=== PATIENT | female | born 1955 | race Caucasian/White ===

== ENCOUNTER → 2018-08-11 | Outpatient (CLI) | payer MEDICARE, OTHER ==
--- NOTE | 2018-08-11 15:29 | CARD ---
MR#: [id number] Date of Study: 08/11/2018 Ordering Physician: JUDY SANON, Referring Physician: JUDY SANON, Tech: Karen Foster APPROVED REPORT EXAM: Two-dimensional and M-mode echocardiogram with Doppler and color Doppler. Other Information HR: 69bpm INDICATION CAD Surgery/Intervention Bioprosthetic 2D DIMENSIONS RVDd3.1 (2.9-3.5cm)Left Atrium(2D)3.3 (1.6-4.0cm) IVSd1.0 (0.7-1.1cm)Aortic Root(2D)1.5 (2.0-3.7cm) LVDd3.9 (3.9-5.9cm)LVOT Diameter2.0 (1.8-2.4cm) PWd1.0 (0.7-1.1cm)LVDs2.3 (2.5-4.0cm) FS (%) 40.2 %SV46.5 ml LVEF(%)71.5 (>50%) Aortic Valve AoV Peak Dk.230.9cm/sAoV VTI40.6cm AO Peak GR.21.3mmHgLVOT Peak Dk.95.0cm/s LVOT VTI 20.17cmAO Mean GR.12mmHg MARLON (VMAX)1.50ba3FKK (VTI)1.58cm2 Mitral Valve MV E Lazjraiz73.0cm/sMV DECEL HKJE215il MV A Fgfihamm077.3cm/sE/A Ratio0.7 Pulmonary Valve PV Peak Mbhrcozp523.8cm/sPV Peak Grad.7mmHg Tricuspid Valve TR P. Jrfrlgcn973nh/sRAP PBQQAZWT7bnFt TR Peak Gr.07vuUvZVTW97cnId Pulmonary Vein S1 Qgslkkfo14.6cm/sD2 Axixfmeq18.6cm/s LEFT VENTRICLE The left ventricle is normal size. There is borderline concentric left ventricular hypertrophy. The l eft ventricular systolic function is normal and the ejection fraction is within normal range. The Eje ction Fraction is 60-65%. There is normal LV segmental wall motion. Transmitral Doppler flow pattern is Grade I-abnormal relaxation pattern. RIGHT VENTRICLE The right ventricle is normal size. There is normal right ventricular wall thickness. The right ventr icular systolic function is normal. ATRIA The left atrium size is normal. The right atrium size is normal. The interatrial septum is intact wit h no evidence for an atrial septal defect or patent foramen ovale as noted on 2-D or Doppler imaging. AORTIC VALVE The aortic valve is not well visualized. Doppler and Color Flow revealed no significant aortic regurg itation. Calculated aortic valve area is 1.6 cm2 with maximum pressure gradient of 21 mmHg and mean p ressure gradient of 12 mmHg. Transcatheter AVR in place. 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 MITRAL VALVE The mitral valve is thickened but opens well. There is no mitral valve stenosis. Doppler and Color-fl ow revealed trace mitral regurgitation. TRICUSPID VALVE The tricuspid valve is not well visualized. Doppler and Color Flow revealed trace tricuspid regurgita tion. There is no tricuspid valve stenosis. PULMONIC VALVE The pulmonic valve is not well visualized. Doppler and Color Flow revealed trace pulmonic valvular re gurgitation. There is no pulmonic valvular stenosis. GREAT VESSELS The aortic root is normal in size. Normal pulmonary venous flow (Doppler). The IVC is normal in size and collapses >50% with inspiration. PERICARDIAL EFFUSION There is no evidence of significant pericardial effusion. Critical Notification Critical Value: No <Conclusion> The left ventricular systolic function is normal and the ejection fraction is within normal range. Th e Ejection Fraction is 60-65%. There is normal LV segmental wall motion. Transcatheter AVR in place. 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 Calculated aortic valve area is 1.6 cm2 with maximum pressure gradient of 21 mmHg and mean pressure gradient of 12 mmHg. Signed by : Judy Sanon, Electronically Approved : 08/11/2018 15:28:25
== END | disposition home or self-care (01) ==
LOC: ECHO 12:38
PROVIDERS: ATTEND Internal Medicine Cardiovascular Disease
DX: I25.10 Atherosclerotic heart disease of native coronary artery without angina pectoris (principal)
CPT/HCPCS: 93306

== ENCOUNTER → 2019-02-11 | Outpatient (CLI) | payer MEDICARE, OTHER ==
[~2019-02-11] VITALS: Ht 162.6 cm; Wt 63.5 kg
[~2019-02-11] MED LIST: LOSA25TA PO; REGADENOSON 0.4 MG/5 ML DISP.SYRIN. IV ONE
--- NOTE | 2019-02-11 12:56 | RAD ---
MR#: [id number] Date of Study: 02/11/2019 Ordering Physician: JUDY SANON, Referring Physician: JOSHUA BURR Tech: NOVA Woodson ARRT (Miguel A) (N) APPROVED REPORT Test Type: Pharmacological Stress Nurse/Tech: JOHNSON Ma/PASQUALE Woodson Test Indications: cad Cardiac History: See Electronic Medical Record Medications: See Electronic Medical Record Medical History: See Electronic Medical Record Resting ECG: sr, LBBB Resting Heart Rate: 70 bpm Resting Blood Pressure: 172/72mmHg Pretest Chest Pain: None Nurse/Tech Notes SR, LBBB Consent: The procedure was explained to the patient in lay terms. Informed consent was witnessed. Nnamdi eout was entered into [employer]. History and Stress Test performed by NOVA Woodson ARRT (R) (N) Pharm. Details Pharmacologic stress testing was performed using 0.4mg per 5ml of regadenoson given intravenously ove r 7-10 seconds. Stress Symptoms Dyspnea POST EXERCISE Reason for Termination: Infusion complete Target HR: No Max HR: 99 bpm 73% of Maximum Predicted HR: 134 bpm Exercise duration: 6 min:sec, Stage Max Blood Pressure: 164/65mmHg Blood Pressure response to exercise: Normal blood pressure response during stress. Chest Pain: No. Arrhythmia: No. ST Change: No. INTERPRETATION Stress EKG Conclusion: SR, LBBB Imaging Protocol IMAGE PROTOCOL: Rest Tc-99m/stress Tc-99m 1 day Rest: Stress: Viability: Radiopharm.Tc99m QzgtrydpgGj53n Sestamibi Fmuz45bGn 34mCi Img Date 02/11/2019 02/11/2019 Rest Admin Site:IV - Left AntecubitalAdministrator: NOVA Woodson ARRT (R)(N) Stress Admin Site: IV - Left AntecubitalAdministrator: NOVA Woodson ARRT (Miguel A)(N) STRESS DATA End Diast. Vol.57.0mlAv. Heart Rate73.0bpm LVEDV index BSA1.0mlCardiac Output0.1L/min End Syst. Vol.12.0mlCO Index BSA3.2L/min LVESV index BSA0.0mlMyocardial Rpgc187.0g Eject. Rmgvkmbl00.0% Stress Rates Pk. Fill Rate3.97EDV/secLVtime Pk. Fill 199.91msec Pk. Empty Rate4.21ESV/secLVtime Pk. Iarjy889.11msec 1/3 Pk. Fill1.49EDV/sec Stress Scores Regional WT0.00Summed WT7.00 Regional WM0.00Summed WM3.00 The rest and stress images show normal perfusion, normal contraction and thickening. LV Perf. Quant 17 Seg. SSS1.00 17 Seg. SRS3.00 17 Seg. SDS0.00 Stress Defect Extent (% LAD)5.00Rest Defect Extent (% LAD)11.90Rev. Defect Extent (% LAD)0.00 Stress Defect Extent (% LCX) 0.00Rest Defect Extent (% LCX)0.00Rev. Defect Extent (% LCX)0.00 Stress Defect Extent (% RCA)0.00Rest Defect Extent (% RCA)0.00Rev. Defect Extent (% RCA)0.00 Stress Defect Extent (% TESFAYE)3.30Rest Defect Extent (% TESFAYE)7.00Rev. Defect Extent (% TESFAYE)0.00 Other Information Quality:Good Risk Assessment: Low Risk Conclusion 1. Non-diagnostic EKG due to baseline LBBB 2. Normal perfusion at stress/rest. 3. Low risk study 4. EF > 70% Signed by : Judy Sanon, Electronically Approved : 02/11/2019 12:55:49
== END | disposition home or self-care (01) ==
LOC: NM 07:50
PROVIDERS: ATTEND Internal Medicine Cardiovascular Disease
DX: I25.10 Atherosclerotic heart disease of native coronary artery without angina pectoris (principal); I10 Essential (primary) hypertension; Z79.01 Long term (current) use of anticoagulants
CPT/HCPCS: 78452; 93017; 96376; A9500; J2785; 96375

== ENCOUNTER → 2020-05-10 | Outpatient (CLI) | payer OTHER ==
[~2020-05-10] MED LIST changes: -REGADENOSON 0.4 MG/5 ML DISP.SYRIN. IV ONE
[2020-05-10 15:07] LABS: BASO % 0 % (0-3); EOS # 0.1 x10^3/uL (0.0-0.7); EOS % 2 % (0-3); HEMATOCRIT 43.7 % (36.0-47.0); HEMOGLOBIN 14.2 g/dL (12.0-15.5); LYMPH # 0.6 x10^3/uL (1.0-4.8); LYMPH % 10 % (24-48); MEAN CORPUSCULAR HEMOGLOBIN 29 pg (25-35); MEAN CORPUSCULAR HGB CONC 33 g/dL (31-37); MEAN CORPUSCULAR VOLUME 90 fL (79-100); MONO # 0.4 x10^3/uL (0.0-1.1); MONO % 6 % (0-9); NEUT # 5.6 x10^3uL (1.8-7.7); NEUT % 82 % (31-73); PLATELET COUNT 251 x10^3/uL (140-400); RED BLOOD COUNT 4.88 x10^6/uL (3.50-5.40); RED CELL DISTRIBUTION WIDTH 15.9 % (11.5-14.5); WHITE BLOOD COUNT 6.8 x10^3/uL (4.0-11.0)
[2020-05-10 15:16] LABS: ALBUMIN 3.6 g/dL (3.4-5.0); CALCIUM 9.4 mg/dL (8.5-10.1); GFR 55.8; MAGNESIUM 1.5 mg/dL (1.8-2.4); PHOSPHORUS 2.7 mg/dL (2.6-4.7); POTASSIUM 3.8 mmol/L (3.5-5.1); TOTAL BILIRUBIN 0.3 mg/dL (0.2-1.0); TOTAL PROTEIN 7.1 g/dL (6.4-8.2); URIC ACID 3.7 mg/dL (2.6-6.0)
[2020-05-10 16:02] LABS: BACTERIA,URINE MANY /HPF (0-FEW); BILIRUBIN,URINE NEG (NEG); CLARITY,URINE HAZY; COLOR,URINE YELLOW; GLUCOSE,URINE NEG (NEG); NITRITE,URINE POS (NEG); UROBILINOGEN,URINE 0.2 mg/dL (0.2 mg/dL); WBC,URINE 20-40 /HPF (0-4)
[2020-05-11 02:06] LABS: HEMOGLOBIN A1C 6.2 % (4.8-5.6)
[2020-05-11 14:12] LABS: CREATININE,RANDOM URINE 137.1 mg/dL (Not Establ.)
== END | disposition home or self-care (01) ==
LOC: LAB 13:59
PROVIDERS: ATTEND Specialist
DX: E10.22 Type 1 diabetes mellitus with diabetic chronic kidney disease (principal); N18.2 Chronic kidney disease, stage 2 (mild); E10.8 Type 1 diabetes mellitus with unspecified complications; R80.8 Other proteinuria; D89.9 Disorder involving the immune mechanism, unspecified; Z94.0 Kidney transplant status; Z79.899 Other long term (current) drug therapy
CPT/HCPCS: 36415; 80053; 80197; 81001; 82150; 82570; 83036; 83690; 83735; 84100; 84156; 84550; 85025; 87077; 87086; 87186

== ENCOUNTER → 2020-06-06 | Outpatient (CLI) | payer OTHER ==
[2020-06-06 11:57] LABS: BASO % 0 % (0-3); EOS # 0.1 x10^3/uL (0.0-0.7); EOS % 1 % (0-3); HEMATOCRIT 40.9 % (36.0-47.0); HEMOGLOBIN 13.5 g/dL (12.0-15.5); LYMPH # 0.9 x10^3/uL (1.0-4.8); LYMPH % 10 % (24-48); MEAN CORPUSCULAR HEMOGLOBIN 30 pg (25-35); MEAN CORPUSCULAR HGB CONC 33 g/dL (31-37); MEAN CORPUSCULAR VOLUME 89 fL (79-100); MONO # 0.6 x10^3/uL (0.0-1.1); MONO % 7 % (0-9); NEUT # 7.5 x10^3uL (1.8-7.7); NEUT % 82 % (31-73); PLATELET COUNT 445 x10^3/uL (140-400); RED BLOOD COUNT 4.58 x10^6/uL (3.50-5.40); RED CELL DISTRIBUTION WIDTH 15.2 % (11.5-14.5); WHITE BLOOD COUNT 9.2 x10^3/uL (4.0-11.0)
[2020-06-06 12:20] LABS: ALBUMIN 3.1 g/dL (3.4-5.0); ALBUMIN/GLOBULIN RATIO 0.8 (1.0-1.7); CALCIUM 9.4 mg/dL (8.5-10.1); CREATININE 0.9 mg/dL (0.6-1.0); MAGNESIUM 1.6 mg/dL (1.8-2.4); PHOSPHORUS 3.3 mg/dL (2.6-4.7); POTASSIUM 3.8 mmol/L (3.5-5.1); TOTAL BILIRUBIN 0.3 mg/dL (0.2-1.0); TOTAL PROTEIN 6.8 g/dL (6.4-8.2); URIC ACID 3.5 mg/dL (2.6-6.0)
[2020-06-06 13:40] LABS: BACTERIA,URINE MANY /HPF (0-FEW); BILIRUBIN,URINE NEG (NEG); CLARITY,URINE CLOUDY; COLOR,URINE YELLOW; GLUCOSE,URINE NEG (NEG); NITRITE,URINE POS (NEG); SQUAMOUS EPITHELIAL CELL,UR FEW /LPF; WBC,URINE OCC /HPF (0-4)
[2020-06-07 02:07] LABS: HEMOGLOBIN A1C 6.3 % (4.8-5.6)
[2020-06-07 20:32] LABS: CREATININE,RANDOM URINE 66.9 mg/dL (Not Establ.)
== END | disposition home or self-care (01) ==
LOC: LAB 11:16
PROVIDERS: ATTEND Specialist
DX: D89.9 Disorder involving the immune mechanism, unspecified (principal); R80.8 Other proteinuria; Z94.0 Kidney transplant status; Z79.899 Other long term (current) drug therapy; Z94.83 Pancreas transplant status
CPT/HCPCS: 80053; 80197; 81001; 82150; 82570; 83036; 83690; 83735; 84100; 84156; 84550; 85025; 87086

== ENCOUNTER 2021-02-13 23:07 | Emergency (ER) | payer OTHER ==
[~2021-02-13] VITALS: Ht 162.6 cm; Wt 56.8 kg
--- NOTE | 2021-02-13 23:26 | PHYS DOC ---
Past History Past Medical History: CAD, Diabetes, Hypertension, Renal Disease, Other Additional Past Medical Histor: kidney/pancreas transplant Past Surgical History: Cholecystectomy, Hip Replacement, Tubal ligation Additional Past Surgical Histo: 4 cardiac stents,aortic valve replacement,rt thigh/wrist/knee, kidney/panc Smoking: Non-smoker Alcohol Use: None Drug Use: None General Adult EDM: Chief Complaint: SHORTNESS OF BREATH HPI: HPI: 65-year-old female presents via EMS with progressive dyspnea x4-5 days. Patient reports was seen by PCP on Friday and thought to have right lower lobe infiltrate. Patient was started on antibiotic she thinks is "Omnicef ". Patient also reports prednisone was increased to 20 mg. Patient has a history of kidney and pancreas transplant from . Patient denies trauma. Denies fever or chills. Denies known exposure to COVID-19. Patient reports she has received COVID-19 vaccination x2. Patient does report she is currently on Effient. Also reports reports history of aortic valve replacement, diabetes, and hypertension. Patient denies leg swelling or calf tenderness. Denies trauma. Denies chest pain. EMS reports patient's O2 down to 85% on room air upon their arrival. Patient reports she typically is not on supplemental O2. EMS placed patient on supplemental O2 with interval improvement of oxygen saturation. Review of Systems: Review of Systems: Constitutional: Denies fever or chills Eyes: Denies redness or eye pain HENT: Denies nasal congestion or sore throat Respiratory: Denies cough; reports shortness of breath Cardiovascular: Denies chest pain or palpitations GI: Denies abdominal pain, nausea, or vomiting : Denies dysuria or hematuria Musculoskeletal: Denies back pain or joint pain Integument: Denies rash or skin lesions Neurologic: Denies headache, focal weakness or sensory changes Complete systems were reviewed and found to be within normal limits, except as documented in this note. Allergies: Allergies: Allergies Coded Allergies Type Severity Reaction Last Updated Verified No Known Drug Allergies 02/13/21 No Physical Exam: PE: Constitutional: Well developed, well nourished, mild respiratory distress, non- toxic appearance HENT: Normocephalic, atraumatic Eyes: Conjunctiva normal, no discharge, right eye ptosis noted Neck: Normal range of motion, no tenderness, supple Lungs & Thorax: Mild respiratory distress, rales at bases bilaterally, equal chest rise and fall Cardiovascular: Regular rate and rhythm Abdomen: Soft, no tenderness Skin: Warm, dry, no erythema, no rash Extremities: No tenderness, ROM intact, trace edema Neurologic: Alert and oriented X 3, no focal deficits noted Psychologic: Affect normal, judgment normal Current Patient Data: Vital Signs: Vital Signs Date Time Temp Pulse Resp B/P (MAP) Pulse Ox O2 Delivery O2 Flow Rate FiO2 02/13/21 23:13 98.0 73 22 154/53 (86) 95 Nasal Cannula 2.0 EKG: EKG: @2316 NSR at 86bpm, LBBB, QRS 138ms, QT/QTc 394/475ms Radiology/Procedures: Radiology/Procedures: PROCEDURE: CHEST AP ONLY INDICATION: Reason: SOA / Spl. Instructions: / History: COMPARISON: October 2020 FINDINGS: Single view of chest obtained. Cardiac silhouette is enlarged. Aortic valve is seen. Mild interstitial and groundglass opacities bilaterally IMPRESSION: * Mild interstitial and groundglass opacities which could be from mild edema or interstitial infiltrate. Electronically signed by: Jhonatan Grijalva MD (02/13/2021 11:45 PM) DESKTOP- [id number] Heart Score: C/O Chest Pain: No HEART Score for Chest Pain: HEART Score for Chest Pain Response (Comments) Value History Slighlty/Non-Suspicious 0 ECG Nonspecific Repolarizatio 1 Age >45 - < 65 1 Risk Factors >3 Risk Factors or Hx CAD 2 Troponin >3 x Normal Limit 2 Total 6 Risk Factors: Risk Factors: DM, Current or recent (<one month) smoker, HTN, HLP, family history of CAD, obesity. Risk Scores: Score 0 - 3: 2.5% MACE over next 6 weeks - Discharge Home Score 4 - 6: 20.3% MACE over next 6 weeks - Admit for Clinical Observation Score 7 - 10: 72.7% MACE over next 6 weeks - Early Invasive Strategies Course & Med Decision Making: Course & Med Decision Making Pertinent Labs and Imaging studies reviewed. (See chart for details) Patient presents with 4 to 5-day history of progressive dyspnea. History of kidney and pancreas transplant. Patient was seen by PCP on Friday and started on empiric antibiotic which patient thinks is Omnicef. Patient also increased in steroid. Patient denies any chest pain. History of hypoxia on room air down to 85%. Improved with supplemental O2. Rales noted on physical exam. Concern for fluid overload. Nitropaste applied for displacement of increased fluid. EKG with left bundle branch block. No prior EKG for comparison. Labs obtained and posted to chart. Troponin elevated to 0.845 and BNP greater than 10,891. Aspirin provided. Lactic acid within normal limits. WBC slightly elevated. Chest x-ray with signs of vascular congestion versus infiltrate. Rapid COVID-19 test negative. Obtained despite patient receiving Covid vaccinations x2 given history of immune compromise situation. Symptoms appear more consistent for CHF exacerbation. Patient requiring transfer to higher level of acuity for admission for further evaluation and treatment. Patient typically follows at . Utilize transfer center. Dr. Perkins ( [facility]) reports safe to give 40mg IV Lasix. Lasix provided. Dr. Adrian Bah (hospitalist) in agreement with transfer to for admission. Discussed findings and plan with patient and family, who acknowledge understanding and agreement. Tatum Disclaimer: Tatum Disclaimer: This electronic medical record was generated, in whole or in part, using a voice recognition dictation system. Departure Departure: Impression: Primary Impression: Acute exacerbation of CHF (congestive heart failure) Qualified Codes: I50.9 - Heart failure, unspecified Additional Impressions: Hypoxia Elevated troponin History of kidney transplant History of pancreas transplant Disposition: [facility] (- Dr. Adrian Bah (hospitalist) accepting) Condition: STABLE Referrals: AUBRIE WADE MD (PCP) Critical Care Time Critical care time was 30 minutes which includes time at bedside, spent in discussion of patient's care with specialists and/or family members, with interpretation of laboratory and/or radiological studies and is exclusive of procedures. JACKSON COLORADO DO February 13, 2021 23:26
--- NOTE | 2021-02-13 23:47 | RAD ---
INDICATION: Reason: SOA / Spl. Instructions: / History: COMPARISON: October 2020 FINDINGS: Single view of chest obtained. Cardiac silhouette is enlarged. Aortic valve is seen. Mild interstitial and groundglass opacities bilaterally IMPRESSION: * Mild interstitial and groundglass opacities which could be from mild edema or interstitial infiltr ate. Electronically signed by: Jhonatan Grijalva MD (02/13/2021 11:45 PM) [id number]
[2021-02-13] MEDS: NITROGLYCERIN OINT 1 GM PACKET. TP ONE (23:51)
[2021-02-13 23:58] LABS: BASO # 0.1 x10^3/uL (0.0-0.2); BASO % 1 % (0-3); EOS % 0 % (0-3); HEMATOCRIT 40.3 % (36.0-47.0); LYMPH # 1.6 x10^3/uL (1.0-4.8); LYMPH % 12 % (24-48); MEAN CORPUSCULAR HEMOGLOBIN 27 pg (25-35); MEAN CORPUSCULAR HGB CONC 32 g/dL (31-37); MEAN CORPUSCULAR VOLUME 84 fL (79-100); MONO # 0.5 x10^3/uL (0.0-1.1); MONO % 3 % (0-9); NEUT # 10.9 x10^3uL (1.8-7.7); NEUT % 83 % (31-73); PLATELET COUNT 314 x10^3/uL (140-400); RED BLOOD COUNT 4.83 x10^6/uL (3.50-5.40); RED CELL DISTRIBUTION WIDTH 16.2 % (11.5-14.5); WHITE BLOOD COUNT 13.1 x10^3/uL (4.0-11.0)
[2021-02-14 00:08] LABS: CALCIUM 9.3 mg/dL (8.5-10.1); CREATININE 1.1 mg/dL (0.6-1.0)
--- NOTE | 2021-02-14 00:12 | EKG ---
[address] [address] Test Date: 2021-02-13 Test Time: 23:16:50 Pat Name: STEVEN COTE Department: Room: Gender: F Prick Stitcher: : 1955 Requested By: JACKSON COLORADO Order Number: [id number] Reading MD: Measurements Intervals [place] Rate: 86 P: 52 OK: 162 QRS: -6 QRSD: 138 T: 100 QT: 394 QTc: 475 Interpretive Statements SINUS RHYTHM LEFT ATRIAL ABNORMALITY LEFTWARD AXIS LEFT BUNDLE BRANCH BLOCK ABNORMAL ECG RI6.02 No previous ECG available for comparison
[2021-02-14 00:23] LABS: ALBUMIN 3.2 g/dL (3.4-5.0); ALBUMIN/GLOBULIN RATIO 0.9 (1.0-1.7); MAGNESIUM 1.9 mg/dL (1.8-2.4); TOTAL BILIRUBIN 0.5 mg/dL (0.2-1.0); TOTAL PROTEIN 6.9 g/dL (6.4-8.2)
[2021-02-14] MEDS ORDERED: FUROSEMIDE 40 MG/4 ML VIAL IVP ONE (00:30)
[2021-02-14] MEDS: ASPIRIN ENTERIC COATED 325 MG TABLET.DR. PO ONE (00:45)
[2021-02-14] MEDS: FUROSEMIDE 40 MG/4 ML VIAL IVP ONE (02:00)
[2021-02-14 02:32] VITALS: BP 163/85
== END 2021-02-14 02:33 | disposition short-term general hospital (02) ==
LOC: ER 23:07
DX: I11.0 Hypertensive heart disease with heart failure (principal); I50.9 Heart failure, unspecified; R09.02 Hypoxemia; R77.8 Other specified abnormalities of plasma proteins; I25.10 Atherosclerotic heart disease of native coronary artery without angina pectoris; E11.9 Type 2 diabetes mellitus without complications; Z20.822 Contact with and (suspected) exposure to COVID-19; Z94.0 Kidney transplant status; Z90.49 Acquired absence of other specified parts of digestive tract; Z98.51 Tubal ligation status
CPT/HCPCS: 36415; 71045; 80053; 82553; 83605; 83735; 83880; 84484; 85025; 85610; 85730; 87426; 93005; 96374; 99291; C9803; J1940; U0003; 99285-25

== ENCOUNTER 2021-03-17 23:20 | Emergency (ER) | payer OTHER ==
[~2021-03-17] VITALS: Ht 162.6 cm; Wt 56.8 kg
--- NOTE | 2021-03-17 23:40 | PHYS DOC ---
Past History Past Medical History: CAD, Diabetes, Hypertension, Renal Disease, Other Additional Past Medical Histor: kidney/pancreas transplant Past Surgical History: Cholecystectomy, Hip Replacement, Tubal ligation Additional Past Surgical Histo: 4 cardiac stents,aortic valve replacement,rt thigh/wrist/knee, kidney/panc Smoking: Non-smoker Alcohol Use: None Drug Use: None General Adult EDM: Chief Complaint: UPPER EXTREMITY PAIN HPI: HPI: Patient is a 65 year old Female who presents with above hx and complaints of arm paind. Pt. follows with Dr. Bowman Review of Systems: Review of Systems: Constitutional: Denies fever or chills Eyes: Denies change in visual acuity HENT: Denies nasal congestion or sore throat Respiratory: Denies cough or shortness of breath Cardiovascular: Denies chest pain or edema GI: Denies abdominal pain, nausea, vomiting, bloody stools or diarrhea : Denies dysuria Musculoskeletal: Denies back pain or joint pain Integument: Denies rash Neurologic: Denies headache, focal weakness or sensory changes Endocrine: Denies polyuria or polydipsia Lymphatic: Denies swollen glands Psychiatric: Denies depression or anxiety Allergies: Allergies: Allergies Coded Allergies Type Severity Reaction Last Updated Verified No Known Drug Allergies 02/13/21 No Physical Exam: PE: Constitutional: Well developed, well nourished, no acute distress, non-toxic appearance. [] HENT: Normocephalic, atraumatic, bilateral external ears normal, oropharynx moist, no oral exudates, nose normal. [] Eyes: PERRLA, EOMI, conjunctiva normal, no discharge. [] Neck: Normal range of motion, no tenderness, supple, no stridor. [] Cardiovascular:Heart rate regular rhythm, no murmur [] Lungs & Thorax: Bilateral breath sounds clear to auscultation [] Abdomen: Bowel sounds normal, soft, no tenderness, no masses, no pulsatile masses. [] Skin: Warm, dry, no erythema, no rash. [] Back: No tenderness, no CVA tenderness. [] Extremities: No tenderness, no cyanosis, no clubbing, ROM intact, no edema. [] Neurologic: Alert and oriented X 3, normal motor function, normal sensory function, no focal deficits noted. [] Psychologic: Affect normal, judgement normal, mood normal. [] EKG: EKG: [] Radiology/Procedures: Radiology/Procedures: [[address] [address] IMAGING REPORT Signed PATIENT: STEVEN COTE ACCOUNT: [id number] : 1955 LOCATION: ER AGE: 65 SEX: F EXAM STATUS: REG ER ORD. PHYSICIAN: NAWAF TUCKER MD REASON: Severe lower leg pain - PROCEDURE: DUPLEX LOWER EXTREMITY BILAT EXAM: US DPLX ARTR EXTREM LOWER BILAT CLINICAL INDICATION: Severe lower leg pain TECHNIQUE: Sonographic grayscale images obtained of the bilateral lower extremity arterial systems with color and spectral Doppler analysis. COMPARISON: None. FINDINGS: RIGHT: Biphasic waveforms throughout. Focally elevated velocity in the popliteal artery and decreased velocity in the posterior tibial artery, compatible with hemodyn amically significant stenosis. Remainder of the velocities within normal limits. LEFT: Biphasic waveforms throughout. Velocities within normal limits. IMPRESSION: Findings compatible with hemodynamically significant stenosis near the right popliteal artery as described. No evidence of hemodynamically significant stenosis in the left lower extremity arterial system. Electronically signed by: Clayton Alas DO (03/18/2021 2:35 AM) [facility] DICTATED AND SIGNED BY: CLAYTON ALAS DO DATE: 03/18/21228 CC: NAWAF TUCKER MD; AUBRIE BOWMAN MD ~MTH0 0 ][address] [address] IMAGING REPORT Signed PATIENT: STEVEN COTE ACCOUNT: [id number] : 1955 LOCATION: ER AGE: 65 SEX: F EXAM STATUS: REG ER ORD. PHYSICIAN: NAWAF TUCKER MD REASON: Severe lower leg pain - PROCEDURE: VENOUS LOWER EXT BILATERAL EXAMINATION: US BILATERAL LOWEREXTREMITY VENOUS DOPPLER (LOWER EXTREMITY VENOUS ULTRASOUND) CLINICAL HISTORY: Severe lower leg pain TECHNIQUE: Sonographic grayscale images obtained of the bilateral lower extremity deep venous systems with color flow Doppler, compression, and augmentation techniques as indicated. Images obtained and stored in a permanent archive. COMPARISON: None FINDINGS: RIGHT: No evidence of absent flow or incompressibility within the common femoral vein, femoral vein, or popliteal vein. Visualized calf veins appear patent on limited evaluation. LEFT: No evidence of absent flow or incompressibility within the common femoral vein, femoral vein, or popliteal vein. Visualized calf veins appear patent on limited evaluation. IMPRESSION: No evidence of bilateral lower extremity DVT. Electronically signed by: Clayton Alas DO (03/18/2021 2:28 AM) [facility] DICTATED AND SIGNED BY: CLAYTON ALAS DO DATE: 03/18/21227 CC: NAWAF TUCKER MD; AUBRIE BOWMAN MD ~MTH0 0 Heart Score: Risk Factors: Risk Factors: DM, Current or recent (<one month) smoker, HTN, HLP, family history of CAD, obesity. Risk Scores: Score 0 - 3: 2.5% MACE over next 6 weeks - Discharge Home Score 4 - 6: 20.3% MACE over next 6 weeks - Admit for Clinical Observation Score 7 - 10: 72.7% MACE over next 6 weeks - Early Invasive Strategies Course & Med Decision Making: Course & Med Decision Making Pertinent Labs and Imaging studies reviewed. (See chart for details) [] Dragon Disclaimer: Dragon Disclaimer: This electronic medical record was generated, in whole or in part, using a voice recognition dictation system. Departure Departure: Referrals: AUBRIE BOWMAN MD (PCP) NAWAF TUCKER MD Mar 17, 2021 23:40
--- NOTE | 2021-03-18 02:31 | RAD ---
EXAMINATION: US BILATERAL LOWEREXTREMITY VENOUS DOPPLER (LOWER EXTREMITY VENOUS ULTRASOUND) CLINICAL HISTORY: Severe lower leg pain TECHNIQUE: Sonographic grayscale images obtained of the bilateral lower extremity deep venous systems with color flow Doppler, compression, and augmentation techniques as indicated. Images obtained and stored in a permanent archive. COMPARISON: None FINDINGS: RIGHT: No evidence of absent flow or incompressibility within the common femoral vein, femoral vein, or popl iteal vein. Visualized calf veins appear patent on limited evaluation. LEFT: No evidence of absent flow or incompressibility within the common femoral vein, femoral vein, or popl iteal vein. Visualized calf veins appear patent on limited evaluation. IMPRESSION: No evidence of bilateral lower extremity DVT. Electronically signed by: Clayton Brody DO (03/18/2021 2:28 AM) AUTUMN
--- NOTE | 2021-03-18 02:38 | RAD ---
EXAM: US DPLX ARTR EXTREM LOWER BILAT CLINICAL INDICATION: Severe lower leg pain TECHNIQUE: Sonographic grayscale images obtained of the bilateral lower extremity arterial systems wi th color and spectral Doppler analysis. COMPARISON: None. FINDINGS: RIGHT: Biphasic waveforms throughout. Focally elevated velocity in the popliteal artery and decreased veloci ty in the posterior tibial artery, compatible with hemodynamically significant stenosis. Remainder of the velocities within normal limits. LEFT: Biphasic waveforms throughout. Velocities within normal limits. IMPRESSION: Findings compatible with hemodynamically significant stenosis near the right popliteal artery as desc ribed. No evidence of hemodynamically significant stenosis in the left lower extremity arterial system. Electronically signed by: Clayton Brody DO (03/18/2021 2:35 AM) [facility]
[2021-03-18] MEDS ORDERED: MORPHINE SULFATE 10 MG/ML SYRINGE. SQ ONE (03:00)
[2021-03-18 03:05] VITALS: BP 117/72
[2021-03-18] MEDS ORDERED: ONDANSETRON PF 4 MG/2 ML VIAL. ONE (04:34)
== END 2021-03-18 03:10 | disposition home or self-care (01) ==
LOC: ER 23:20
DX: M79.662 Pain in left lower leg (principal); M79.661 Pain in right lower leg; E11.9 Type 2 diabetes mellitus without complications; I10 Essential (primary) hypertension; Z90.49 Acquired absence of other specified parts of digestive tract; Z98.51 Tubal ligation status
CPT/HCPCS: 93925; 93970; 96372; 99285; J2270

== ENCOUNTER 2021-04-01 12:49 | Emergency (ER) | payer OTHER ==
[~2021-04-01] VITALS: Ht 162.6 cm; Wt 56.8 kg
[2021-04-01 12:51] VITALS: BP 110/54
[2021-04-01] MEDS ORDERED: HYDROmorphone PF 1 MG/ML DISP.SYRIN IM ONE (13:15)
--- NOTE | 2021-04-01 14:01 | PHYS DOC ---
Past History Past Medical History: Arthritis, CAD, Diabetes, Hypertension, Renal Disease, Other Additional Past Medical Histor: kidney/pancreas transplant (JACKSON DHALIWAL APRN) Past Surgical History: Cholecystectomy, Hip Replacement, Tubal ligation Additional Past Surgical Histo: 4 cardiac stents,aortic valve replacement,rt thigh/wrist/knee, kidney/panc (JACKSON DHALIWAL APRN) Smoking: Non-smoker Alcohol Use: None Drug Use: None (JACKSON DHALIWAL APRN) Adult General Chief Complaint Chief Complaint: LOWER BACK PAIN OR INJURY HPI HPI Patient is a 66-year-old female presents to the emergency department complaining that she was over active yesterday and flared up her low back sciatica pain. Patient states that she has pain on the left and right side of her low back that radiates down to her buttocks, reporting that this is typical for her sciatica flareups. Patient denies any injury to her back. Patient reports her pain at a 9 out of 10. Denies loss of bladder continence or loss of bowel continence, patient denies any urinary retention. Patient denies any chest pains or shortness of breath, denies recent fever or chills, denies headaches or dizziness. Patient denies any numbness to her buttocks area or periarea. Patient denies any other physical complaints or physical concerns. Patient states that she sees a Dr. Jose L Bowman, states that she would normally have seen him for the pain but it is the weekend. Patient reports she has been taking her OxyContin at home for her pain and it is not helped. Patient states she has not tried any other nonpharmacological therapies for pain relief such as ice or heating pads. (JACKSON DHALIWAL APRN) Review of Systems Review of Systems 14 body systems of review of systems have been reviewed. See HPI for pertinent positives and negative responses, otherwise all other systems are negative, nonpertinent or noncontributory. (JACKSON DHALIWAL APRN) Current Medications Current Medications Current Medications Medications (Trade) Dose Ordered Sig/Nilesh Start Time Stop Time Status Last Admin Dose Admin Hydromorphone HCl (Dilaudid) 1 mg 1X ONCE 04/01/21 13:15 04/01/21 13:16 DC 04/01/21 13:24 1 MG (JACKSON DHALIWAL APRN) Allergies Allergies Allergies Coded Allergies Type Severity Reaction Last Updated Verified No Known Drug Allergies 02/13/21 No (JACKSON DHALIWAL APRN) Physical Exam Physical Exam Constitutional: Well developed, well nourished, no acute distress, non-toxic appearance. 66-year-old female in no apparent distress. Patient's complaint of pain exceeds patient's physical presentation and appearance. HENT: Normocephalic, atraumatic. Eyes: Conjunctiva normal, no discharge. Patient is legally blind, states she can only see outline images. Neck: Normal range of motion, no stridor. Cardiovascular: No cyanosis appreciated, distal cap refill less than 2 seconds. Lungs & Thorax: Patient is in no respiratory distress, no audible adventitious lung sounds appreciated. Abdomen: Nontender, no abnormalities noted. Skin: Warm, dry, no erythema, no rash. Back: No deformities appreciated, no CVA tenderness on the right or left, no midline spinal tenderness, tenderness to palpation on the left and right lumbar area, no skin discoloration appreciated, no paresthesias down distal lower extremities appreciated, 2+ dorsalis pedis/posterior tibial pulses bilaterally, no lower extremity edema or swelling appreciated. Distal cap refill is less than 2 seconds bilaterally lower extremities. Extremities: No tenderness, no cyanosis, no clubbing, ROM intact, no edema. Neurologic: Alert and oriented X 3, normal motor function, normal sensory function, no focal deficits noted. Psychologic: Affect normal, judgement normal, mood normal. (JACKSON DHALIWAL APRN) Current Patient Data Vital Signs Vital Signs Date Time Temp Pulse Resp B/P (MAP) Pulse Ox O2 Delivery O2 Flow Rate FiO2 04/01/21 13:24 16 97 04/01/21 12:51 97.9 77 110/54 Room Air (JACKSON DHALIWAL APRN) EKG EKG [] (JACKSON DHALIWAL APRN) Radiology/Procedures Radiology/Procedures [] (JACKSON DHALIWAL APRN) Heart Score C/O Chest Pain: No Risk Factors: Risk Factors: DM, Current or recent (<one month) smoker, HTN, HLP, family history of CAD, obesity. Risk Scores: Risk Factors: DM, Current or recent (<one month) smoker, HTN, HLP, family history of CAD, obesity. (JACKSON DHALIWAL APRN) Course & Med Decision Making Course & Med Decision Making Pertinent Labs and Imaging studies reviewed. (See chart for details) 66-year-old female, vital signs reviewed, presents emergency department concerning sciatica flareup. Physical examination consistent with sciatica pain. There is no midline spinal tenderness, no saddle anesthesia. Discussed with patient will give 1 mg IM Dilaudid for 9 out of 10 pain. Patient amenable to this plan. Will reexamine pain control after period of time. After period of time, physical examination of the patient found the patient remains nontoxic in appearance, no apparent distress, patient states that her pain level has dropped down to a 6 or a 7. Patient states that she is feeling better and is well enough to go home. Discussed with patient using ice therapy and/or heating pad therapy to her low back to help with pain, continue taking her pain medications for her chronic aches and pains. Strict follow-up with her primary care physician this week, patient states she has an appointment coming this Friday on 03 April 2021. Considered steroid therapy, however patient is on chronic oral steroid treatment for neuropathy and chronic pains. Patient gave verbal understanding of discharge home instructions, follow-up with PCP this week, return to ER precautions and concerns, patient states she is thankful and had a great experience, patient was discharged to home, remains hemodynamically stable at dispo time. (JACKSON DHALIWAL APRN) Dragon Disclaimer Dragon Disclaimer This electronic medical record was generated, in whole or in part, using a voice recognition dictation system. (JACKSON DHALIWAL APRN) Attending Co-Sign The patient was seen and interviewed as well as examined at the bedside. The chart was reviewed. The case was discussed. Agree with the plan of care. (JOVANY BELLA DO) Departure Departure: Impression: Primary Impression: Lumbago of lumbar region with sciatica Disposition: HOME / SELF CARE / HOMELESS Condition: GOOD Referrals: JOSE L BOWMAN MD (PCP) Patient Instructions: Sciatica Additional Instructions: You were seen today in the emergency department for musculoskeletal pain and sciatica of the low back. You were treated today with 1 mg of Dilaudid which you stated helped get you over the edge of your pain. I recommend you go home and rest, use ice packs or heating pads to help with pain and discomfort. 30 minutes on and 30 minutes off for ice packs or heating pads. Please follow-up with your Dr. Bowman this coming Friday as you have planned. Please return to the emergency department for worsening symptoms or other concerns. It was a pleasure taking care of you today in the emergency department and I thank you for allowing me to participate in your emergency healthcare needs. EMERGENCY DEPARTMENT GENERAL DISCHARGE INSTRUCTIONS Thank you for coming to [facility] (ED) today and trusting us with you care. We trust that you had a positivie experience in our Emergency Department. If you wish to speak to the department management, you may call the director at [phone]. YOUR FOLLOW UP INSTRUCTIONS ARE FOLLOWS: 1. Do you have a private Doctor? If you do not have a private doctor, please ask for a resource list of physicians or clinics that may be able to assist you with follow up care. 2. The Emergency Physician has interpreted your x-rays. The X-Ray specialist will also review them. If there is a change in the findings, you will be notified in 48 hours when at all possible. 3. A lab test or culture has been done, your results will be reviewed and you will be notified if you need a change in treatment. ADDITIONAL INSTRUCTIONS AND INFORMATION: 1. Your care today has been supervised by a physician who is specially trained in emergency care. Many problems require more than one evaluation for a complete diagnosis and treatment. We recommend that you schedule your follow up appointment as recommended to ensure complete treatment of you illness or injury. If you are unable to obtain follow up care and continue to have a problem, or if your condition worsens, we recommend that you return to the ED. 2. We are not able to safely determine your condition over the phone nor are we able to give sound medical advice over the phone. For these safety reasons, if you call for medical advice we will ask you to come to the ED for further evaluation. 3. If you have any questions regarding these discharge instructions please call the ED at [phone]. SAFETY INFORMATION: In the interest of safety, wellness, and injury prevention; we encourage you to wear your sealbelt, if you smoke; quite smoking, and we encourage family to use a protective helmet for bicycling and other sporting events that present an increased risk for head injury. IF YOUR SYMPTOMS WORSEN OR NEW SYMPTOMS DEVELOP, OR YOU HAVE CONCERNS ABOUT YOUR CONDITION; OR IF YOUR CONDITION WORSENS WHILE YOU ARE WAITING FOR YOUR FOLLOW UP APPOI NTMENT; EITHER CONTACT YOUR PRIMARY CARE DOCTOR, THE PHYSICIAN WHOSE NAME AND NUMBER YOU WERE GIVEN, OR RETURN TO THE ED IMMEDIATELY. JACKSON DHALIWAL APRN Apr 01, 2021 14:01 JOVANY BELLA DO Apr 02, 2021 06:27
== END 2021-04-01 14:06 | disposition home or self-care (01) ==
LOC: ER 12:49
DX: M54.42 Lumbago with sciatica, left side (principal); M54.41 Lumbago with sciatica, right side; E11.9 Type 2 diabetes mellitus without complications; I10 Essential (primary) hypertension; Z90.49 Acquired absence of other specified parts of digestive tract; Z98.51 Tubal ligation status
CPT/HCPCS: 96372; 99283; J1170

== ENCOUNTER 2021-10-06 23:16 | Emergency (ER) | payer OTHER ==
[~2021-10-06] VITALS: Ht 162.6 cm; Wt 56.8 kg
--- NOTE | 2021-10-06 23:28 | PHYS DOC ---
Past History Past Medical History: Arthritis, CAD, Diabetes, Hypertension, Renal Disease, Other Additional Past Medical Histor: kidney/pancreas transplant Past Surgical History: Cholecystectomy, Hip Replacement, Tubal ligation Additional Past Surgical Histo: 4 cardiac stents,aortic valve replacement,rt thigh/wrist/knee, kidney/panc Smoking: Non-smoker Alcohol Use: None Drug Use: None Adult General HPI HPI Patient is a 66-year-old female with a past medical history significant for diabetes insulin-dependent, CAD, hypertension and renal transplant who presents to the emergency department with a chief complaint of uncontrolled left arm movements that have been going on for the last 3 days, intermittently. States that it is not causing her any pain but she is having muscle contractions and involuntary movements of the left arm. States this is never happened before. Denies any recent trauma, travels, illnesses, fever, chest pain, shortness of breath, abdominal pain, nausea, vomiting, dysuria, hematuria, blood in the stool or diarrhea. Denies any known ill contacts. States has been eating and drinking normally for her. [facility] has been making urine and stool normally for her. States she is wheelchair-bound but has no new numbness/weakness/tingling. Denies headache, nausea, vomiting. States she is legally blind at baseline. Review of Systems Review of Systems Review of systems otherwise unremarkable except noted in HPI Allergies Allergies Allergies Coded Allergies Type Severity Reaction Last Updated Verified No Known Drug Allergies 02/13/21 No Physical Exam Physical Exam Constitutional: Well developed, well nourished, no acute distress, non-toxic appearance. [] HENT: Normocephalic, atraumatic, bilateral external ears normal, oropharynx moist, no oral exudates, nose normal. [] Eyes: Legally blind, conjunctiva normal, no discharge. [] Neck: Normal range of motion, no tenderness, supple, no stridor. [] Cardiovascular:Heart rate regular rhythm, no murmur [] Lungs & Thorax: Bilateral breath sounds clear to auscultation [] Abdomen: Bowel sounds normal, soft, no tenderness, no masses, no pulsatile masses. [] Skin: Warm, dry, no erythema, no rash. [] Back: No tenderness, no CVA tenderness. [] Extremities: No tenderness, no cyanosis, no clubbing, ROM intact, no edema. [] Neurologic: Alert and oriented X 3, normal motor function, normal sensory function, wheelchair-bound at baseline, no new focal neurologic deficit Psychologic: Affect normal, judgement normal, mood normal. [] EKG EKG [] Radiology/Procedures Radiology/Procedures [] Heart Score C/O Chest Pain: No Risk Factors: Risk Factors: DM, Current or recent (<one month) smoker, HTN, HLP, family history of CAD, obesity. Risk Scores: Risk Factors: DM, Current or recent (<one month) smoker, HTN, HLP, family history of CAD, obesity. Course & Med Decision Making Course & Med Decision Making Patient is a 66-year-old female who presents to the emergency department with 3 days of intermittent uncontrolled left arm muscle spasms and movement Vital signs notable for hypertension. Physical exam noted above. EKG notable for left bundle branch block with a rate of 66, QRS of 140, QTc of 465, no STEMI troponin with mild elevation Laboratory analysis notable for hyponatremia, corrected for hyperglycemia 138, elevated creatinine, glucosuria and ketonuria. Started on IV fluid hydration. Started on insulin. Potassium normal at 5.1. DKA versus HHS, but favoring HHS given normal pH with no anion gap and normal carbon oxide. On reassessment, sodium improving, creatinine improving, glucose improving, no anion gap. Mild troponin elevation which trended up very slightly could be within laboratory threshold of approximately the same. EKG with left bundle branch block. Chest x-ray suggestive of infection. Started on antibiotics. COVID swab pending. Rest of patient's care and disposition handed off to day team [place] Disclaimer Dragon Disclaimer This electronic medical record was generated, in whole or in part, using a voice recognition dictation system. Departure Departure: Impression: Primary Impression: KRISTEN (acute kidney injury) Additional Impressions: Elevated troponin Type 1 diabetes mellitus with hyperosmolar hyperglycemic state (HHS) Pneumonia NSTEMI (non-ST elevated myocardial infarction) Condition: STABLE Referrals: AUBRIE WADE MD (PCP) Problem Qualifiers SHON LEDESMA MD Oct 06, 2021 23:28
[2021-10-07 00:04] LABS: BASO # 0.1 x10^3/uL (0.0-0.2); BASO % 1 % (0-3); EOS % 1 % (0-3); HEMATOCRIT 44.2 % (36.0-47.0); LYMPH # 1.2 x10^3/uL (1.0-4.8); LYMPH % 21 % (24-48); MEAN CORPUSCULAR HEMOGLOBIN 30 pg (25-35); MEAN CORPUSCULAR HGB CONC 32 g/dL (31-37); MEAN CORPUSCULAR VOLUME 96 fL (79-100); MONO # 0.3 x10^3/uL (0.0-1.1); MONO % 5 % (0-9); NEUT % 72 % (31-73); PLATELET COUNT 142 x10^3/uL (140-400); RED BLOOD COUNT 4.62 x10^6/uL (3.50-5.40); RED CELL DISTRIBUTION WIDTH 17.7 % (11.5-14.5); WHITE BLOOD COUNT 5.6 x10^3/uL (4.0-11.0)
[2021-10-07 00:16] LABS: CALCIUM 9.5 mg/dL (8.5-10.1); CREATININE 1.6 mg/dL (0.6-1.0); GFR 32.3; POTASSIUM 5.1 mmol/L (3.5-5.1)
[2021-10-07 00:19] LABS: ALBUMIN 3.3 g/dL (3.4-5.0); MAGNESIUM 1.9 mg/dL (1.8-2.4); TOTAL BILIRUBIN 0.6 mg/dL (0.2-1.0); TOTAL PROTEIN 6.6 g/dL (6.4-8.2)
[2021-10-07 00:20] LABS: BACTERIA,URINE FEW /HPF (0-FEW); BILIRUBIN,URINE NEG (NEG); CLARITY,URINE CLEAR; COLOR,URINE YELLOW; GLUCOSE,URINE >=1000 mg/dL (NEG); NITRITE,URINE NEG (NEG); RBC,URINE 0 /HPF (0-2); UROBILINOGEN,URINE 0.2 mg/dL (0.2 mg/dL)
--- NOTE | 2021-10-07 00:22 | RAD ---
CT HEAD/BRAIN WO History: Reason: stroke/mass, and TREMORS LEFT ARM, X 3 DAYS / Spl. Instructions: / History: Comparison: None. Technique: Noncontrast CT imaging was performed of the head. Exposure: One or more of the following individualized dose reduction techniques were utilized for thi s examination: 1. Automated exposure control 2. Adjustment of the mA and/or kV according to patient size 3. Use of iterative reconstruction technique. Findings: No intracranial hemorrhage. No mass effect. Mild prominence of the lateral ventricles. Small left lateral ventricle lobulation. Mild to moderate foci of decreased attenuation within the hemispheric white matter, most often due to chronic microvascular ischemia. Imaged orbits are unremarkable. Partial desiccation of left anterior ethmoid air cell. Mastoid air ce lls are clear. No acute calvarial fracture. Impression: 1. No acute intracranial abnormality. 2. Mild prominence of the lateral ventricles, can be seen with central brain parenchymal volume loss or normal pressure hydrocephalus in the appropriate clinical setting. Electronically signed by: Henri Vega DO (10/07/2021 12:20 AM) [facility]
[2021-10-07] MEDS: IV RINGERS SOLUTION,LACTATED 1,000 ML IV ONE ×2 (00:30→02:40)
[2021-10-07] MEDS: ASPIRIN CHEWABLE 81 MG TABLET. PO ONE (00:42)
[2021-10-07 00:48] LABS: % BANDS 3 % (0-9); % EOS 2 % (0-5); % LYMPHS 26 % (24-48); % MONOS 2 % (0-10); % SEGS 67 % (35-66); PLT ESTIMATE ADEQUATE (ADEQUATE)
[2021-10-07] MEDS: INSULIN REGULAR VIAL 100 UNIT in IV NORMAL SALINE 100ML 100 ML IV PRN (00:56)
--- NOTE | 2021-10-07 03:03 | RAD ---
XR CHEST 1V History: Chest pain Comparison: February 13, 2021 Findings: Mild diffuse interstitial thickening. Ill-defined bibasilar opacities. No pleural effusion. No pneumo thorax. Unchanged heart size. TAVR noted. Impression: 1. Mild interstitial thickening with ill-defined opacities, may represent pulmonary edema or infecti on. Electronically signed by: Henri Vega DO (10/07/2021 3:01 AM) [facility]
--- NOTE | 2021-10-07 03:27 | EKG ---
[address] [address] Test Date: 2021-10-07 Test Time: 00:15:43 Pat Name: STEVEN COTE Department: Room: Gender: F Metal Checker: EYAD : 1955 Requested By: SHON LEDESMA Order Number: [id number] Reading MD: Austyn Garcia Measurements Intervals [place] Rate: 66 P: 39 SC: 192 QRS: -32 QRSD: 140 T: 106 QT: 442 QTc: 465 Interpretive Statements SINUS RHYTHM ABNORMAL LEFT AXIS DEVIATION LEFT BUNDLE BRANCH BLOCK Electronically Signed On 10-13-2021 17:44:07 [employer] by Austyn Garcia
[2021-10-07 03:54] LABS: CALCIUM 8.4 mg/dL (8.5-10.1); CREATININE 1.3 mg/dL (0.6-1.0); GFR 41.1
[2021-10-07] MEDS ORDERED: HEPARIN for IV BOLUS 10,000 UNIT/10 ML VIAL. IV PRN (04:45)
[2021-10-07] MEDS ORDERED: IV NORMAL SALINE 50ML 50 ML ONE (04:49)
[2021-10-07] MEDS ORDERED: cefTRIAXone SODIUM 1 GM VIAL ONE (04:49)
[2021-10-07] MEDS: AZITHROMYCIN 250 MG TABLET. PO ONE (04:54)
[2021-10-07] MEDS: HEPARIN for IV BOLUS 10,000 UNIT/10 ML VIAL. IV ONE (05:05)
[2021-10-07] MEDS: HEPARIN 25,000UTS/250ML PREMIX 250 ML IV PRN (05:08)
--- NOTE | 2021-10-07 09:13 | PHYS DOC ---
Past History Past Medical History: Arthritis, CAD, Diabetes, Hypertension, Renal Disease, Other Additional Past Medical Histor: kidney/pancreas transplant Past Surgical History: Cholecystectomy, Hip Replacement, Tubal ligation Additional Past Surgical Histo: 4 cardiac stents,aortic valve replacement,rt thigh/wrist/knee, kidney/panc Smoking: Non-smoker Alcohol Use: None Drug Use: None Adult General Chief Complaint Chief Complaint: HYPERGLYCEMIA HPI HPI Patient is a 66 year old female who presented initially with abnormal movements in the left upper extremity. She was initially seen by Dr. Barroso. I assumed care at shift turnover Review of Systems Review of Systems Constitutional: Denies fever or chills Eyes: Denies change in visual acuity, redness, or eye pain HENT: Denies nasal congestion or sore throat Respiratory: Denies cough or shortness of breath Cardiovascular: No additional information not addressed in HPI GI: Denies abdominal pain, nausea : Denies dysuria or hematuria Integument: Denies rash or skin lesions Neurologic: As documented in original HPI Endocrine: Denies polyuria or polydipsia All other systems were reviewed and found to be within normal limits, except as documented in this note. Current Medications Current Medications Current Medications Medications (Trade) Dose Ordered Sig/Nilesh Start Time Stop Time Status Last Admin Dose Admin Aspirin (Aspirin Chewable) 324 mg 1X ONCE 10/07/21 00:30 10/07/21 00:31 DC 10/07/21 00:42 324 MG Azithromycin (Zithromax) 500 mg 1X ONCE 10/07/21 04:45 10/07/21 04:46 DC 10/07/21 04:54 500 MG Ceftriaxone Sodium 1 gm/ Sodium Chloride 50 ml @ 100 mls/hr 1X ONCE 10/07/21 04:45 10/07/21 05:14 DC 10/07/21 04:55 100 MLS/HR Ceftriaxone Sodium (Rocephin) 1 gm STK-MED ONCE 10/07/21 04:49 10/07/21 04:49 DC Heparin Sodium (Porcine) (Heparin Sodium) 1,400 unit PRN Q6HRS PRN 10/07/21 04:45 Heparin Sodium/ Dextrose 250 ml @ 6.816 mls/ hr CONT PRN 10/07/21 04:45 10/07/21 05:08 6.816 MLS/HR Insulin Human Regular 100 unit/ Sodium Chloride 101 ml @ 0 mls/hr CONT PRN PRN 10/07/21 00:45 10/07/21 00:56 15.1 MLS/HR Lactated Ringer's 1,000 ml @ 1,000 mls/hr 1X ONCE 10/07/21 02:30 10/07/21 03:29 DC 10/07/21 02:40 1,000 MLS/HR Sodium Chloride 50 ml @ As Directed STK-MED ONCE 10/07/21 04:49 10/07/21 04:49 DC Allergies Allergies Allergies Coded Allergies Type Severity Reaction Last Updated Verified No Known Drug Allergies 02/13/21 No Physical Exam Physical Exam Constitutional: Well developed, well nourished, no acute distress, non-toxic appearance. HENT: Normocephalic, atraumatic, bilateral external ears normal, oropharynx moist, no oral exudates, nose normal. Eyes: PERRLA, EOMI, conjunctiva normal, no discharge. Neck: Normal range of motion, no tenderness, supple, no stridor. Cardiovascular:Heart rate regular rhythm, no murmur Lungs & Thorax: Bilateral breath sounds clear to auscultation Abdomen: Bowel sounds normal, soft, no tenderness, no masses, no pulsatile masses. Skin: Warm, dry, no erythema, no rash. Extremities: No tenderness, no edema Neurologic: Alert and oriented X 3, normal motor function, normal sensory function, no focal deficits noted. Psychologic: Affect normal, judgement normal, mood normal. Current Patient Data Vital Signs Vital Signs Date Time Temp Pulse Resp B/P (MAP) Pulse Ox O2 Delivery O2 Flow Rate FiO2 10/07/21 06:22 56 18 117/55 (75) 96 Room Air 10/07/21 00:15 98.6 Lab Results Laboratory Tests Test 10/06/21 23:30 10/06/21 23:40 10/07/21 01:50 10/07/21 02:07 White Blood Count 5.6 x10^3/uL (4.0-11.0) Red Blood Count 4.62 x10^6/uL (3.50-5.40) Hemoglobin 14.0 g/dL (12.0-15.5) Hematocrit 44.2 % (36.0-47.0) Mean Corpuscular Volume 96 fL (79-100) Mean Corpuscular Hemoglobin 30 pg (25-35) Mean Corpuscular Hemoglobin Concent 32 g/dL (31-37) Red Cell Distribution Width 17.7 % (11.5-14.5) H Platelet Count 142 x10^3/uL (140-400) Neutrophils (%) (Auto) 72 % (31-73) Lymphocytes (%) (Auto) 21 % (24-48) L Monocytes (%) (Auto) 5 % (0-9) Eosinophils (%) (Auto) 1 % (0-3) Basophils (%) (Auto) 1 % (0-3) Neutrophils # (Auto) 4.0 x10^3uL (1.8-7.7) Lymphocytes # (Auto) 1.2 x10^3/uL (1.0-4.8) Monocytes # (Auto) 0.3 x10^3/uL (0.0-1.1) Eosinophils # (Auto) 0.0 x10^3/uL (0.0-0.7) Basophils # (Auto) 0.1 x10^3/uL (0.0-0.2) Segmented Neutrophils % 67 % (35-66) H Band Neutrophils % 3 % (0-9) Lymphocytes % 26 % (24-48) Monocytes % 2 % (0-10) Eosinophils % 2 % (0-5) Platelet Estimate Adequate (ADEQUATE) Sodium Level 127 mmol/L (136-145) L Potassium Level 5.1 mmol/L (3.5-5.1) Chloride Level 91 mmol/L (98-107) L Carbon Dioxide Level 25 mmol/L (21-32) Anion Gap 11 (6-14) Blood Urea Nitrogen 23 mg/dL (7-20) H Creatinine 1.6 mg/dL (0.6-1.0) H Estimated GFR (Cockcroft-Gault) 32.3 BUN/Creatinine Ratio 14 (6-20) Glucose Level 816 mg/dL (70-99) *H Calcium Level 9.5 mg/dL (8.5-10.1) Phosphorus Level 4.0 mg/dL (2.6-4.7) Magnesium Level 1.9 mg/dL (1.8-2.4) Total Bilirubin 0.6 mg/dL (0.2-1.0) Aspartate Amino Transferase (AST) 17 U/L (15-37) Alanine Aminotransferase (ALT) 18 U/L (14-59) Alkaline Phosphatase 95 U/L (46-116) Creatine Kinase 31 U/L (26-192) Troponin I High Sensitivity 126 ng/L (4-50) H Total Protein 6.6 g/dL (6.4-8.2) Albumin 3.3 g/dL (3.4-5.0) L Albumin/Globulin Ratio 1.0 (1.0-1.7) Urine Collection Type U cath Urine Color Yellow Urine Clarity Clear Urine pH 5.5 Urine Specific [place] <=1.005 Urine Protein Neg (NEG-TRACE) Urine Glucose (UA) >=1000 mg/dL (NEG) Urine Ketones (Stick) Trace mg/dL (NEG) Urine Blood Neg (NEG) Urine Nitrite Neg (NEG) Urine Bilirubin Neg (NEG) Urine Urobilinogen Dipstick 0.2 mg/dL (0.2 mg/dL) Urine Leukocyte Esterase Neg (NEG) Urine RBC 0 /HPF (0-2) Urine WBC 5-10 /HPF (0-4) Urine Squamous Epithelial Cells None /LPF Urine Bacteria Few /HPF (0-FEW) POC Venous pH 7.41 (7.32-7.42) POC Venous pCO2 38 mmHg (41-51) L POC Venous pO2 39 mmHg (20-40) Venous Blood HCO3 24 mmol/L (24-28) POC Venous O2 Saturation (Nathan) 74 % POC FiO2 21 Glucose (Fingerstick) 504 mg/dL (70-99) *H Test 10/07/21 03:14 10/07/21 03:30 10/07/21 04:52 10/07/21 05:27 Glucose (Fingerstick) 378 mg/dL (70-99) H 254 mg/dL (70-99) H Sodium Level 135 mmol/L (136-145) L Potassium Level 4.0 mmol/L (3.5-5.1) # Chloride Level 102 mmol/L (98-107) Carbon Dioxide Level 25 mmol/L (21-32) Anion Gap 8 (6-14) Blood Urea Nitrogen 19 mg/dL (7-20) Creatinine 1.3 mg/dL (0.6-1.0) H Estimated GFR (Cockcroft-Gault) 41.1 Glucose Level 358 mg/dL (70-99) H Calcium Level 8.4 mg/dL (8.5-10.1) L Troponin I High Sensitivity 138 ng/L (4-50) H Prothrombin Time 10.8 SEC (9.4-11.4) Prothrombin Time INR 1.0 (0.9-1.1) Test 10/07/21 07:27 Activated Partial Thromboplast Time > 150 SEC (23-33) *H Troponin I High Sensitivity 141 ng/L (4-50) H EKG EKG [] Radiology/Procedures Radiology/Procedures [] Heart Score C/O Chest Pain: No Risk Factors: Risk Factors: DM, Current or recent (<one month) smoker, HTN, HLP, family history of CAD, obesity. Risk Scores: Risk Factors: DM, Current or recent (<one month) smoker, HTN, HLP, family history of CAD, obesity. Course & Med Decision Making Course & Med Decision Making Pertinent Labs and Imaging studies reviewed. (See chart for details) ED summary: I assumed care of this patient at shift turnover. She originally presented to the ER with concerns for left upper extremity movements that seemed abnormal. These symptoms have entirely resolved. Her work-up was negative in the emergency department other than she does noted to have mildly elevated high- sensitivity troponin. These were trended and the patient did not ultimately have large enough delta to raise concern for acute cardiac condition. Her EKG was left bundle branch block. Her subjective symptoms do not include chest pain. She denies palpitations or short of breath. At this time, she is feeling improved. She has follow-up appointment with her primary care doctor tomorrow at 9 AM. She is stable for discharge from the ER. Dragon Disclaimer Dragon Disclaimer This electronic medical record was generated, in whole or in part, using a voice recognition dictation system. Departure Departure: Impression: Primary Impression: KRISTEN (acute kidney injury) Additional Impressions: Type 1 diabetes mellitus with hyperosmolar hyperglycemic state (HHS) Elevated troponin NSTEMI (non-ST elevated myocardial infarction) Pneumonia Disposition: 01 HOME / SELF CARE / HOMELESS Condition: GOOD Referrals: AUBRIE WADE MD (PCP) Patient Instructions: Hyperglycemia Problem Qualifiers PHYLLIS PATRICK DO Oct 07, 2021 09:13
[2021-10-07] MEDS ORDERED: AZIT250T6 PO (09:27)
[2021-10-07 09:43] VITALS: BP 151/75
== END 2021-10-07 11:01 | disposition home or self-care (01) ==
LOC: ER 23:16
DX: N17.9 Acute kidney failure, unspecified (principal); I21.4 Non-ST elevation (NSTEMI) myocardial infarction; J18.9 Pneumonia, unspecified organism; E10.65 Type 1 diabetes mellitus with hyperglycemia; R77.8 Other specified abnormalities of plasma proteins; M19.90 Unspecified osteoarthritis, unspecified site; I25.10 Atherosclerotic heart disease of native coronary artery without angina pectoris; I10 Essential (primary) hypertension
CPT/HCPCS: 36415; 70450; 71045; 80048; 80053; 81001; 82550; 82803; 82947; 83735; 84100; 84484; 85007; 85025; 85610; 85730; 87086; 93005; 96365; 96366; 96367; 96368; 96376; 99285; J0696; J1644; J1815; J7120

== ENCOUNTER → 2022-01-01 | Outpatient (CLI) | payer MEDICARE, OTHER ==
[~2022-01-01] MED LIST changes: +AZIT250T6 PO
[2022-01-01 13:35] LABS: BASO # 0.1 x10^3/uL (0.0-0.2); BASO % 1 % (0-3); EOS # 0.7 x10^3/uL (0.0-0.7); EOS % 10 % (0-3); HEMATOCRIT 39.1 % (36.0-47.0); HEMOGLOBIN 12.8 g/dL (12.0-15.5); LYMPH # 1.2 x10^3/uL (1.0-4.8); LYMPH % 17 % (24-48); MEAN CORPUSCULAR HEMOGLOBIN 31 pg (25-35); MEAN CORPUSCULAR HGB CONC 33 g/dL (31-37); MEAN CORPUSCULAR VOLUME 95 fL (79-100); MONO # 0.5 x10^3/uL (0.0-1.1); MONO % 7 % (0-9); NEUT # 4.4 x10^3uL (1.8-7.7); NEUT % 64 % (31-73); PLATELET COUNT 229 x10^3/uL (140-400); RED BLOOD COUNT 4.13 x10^6/uL (3.50-5.40); RED CELL DISTRIBUTION WIDTH 14.3 % (11.5-14.5); WHITE BLOOD COUNT 6.8 x10^3/uL (4.0-11.0)
[2022-01-01 13:54] LABS: ALBUMIN/GLOBULIN RATIO 0.9 (1.0-1.7); CALCIUM 9.2 mg/dL (8.5-10.1); CREATININE 0.9 mg/dL (0.6-1.0); GFR 62.8; MAGNESIUM 1.6 mg/dL (1.8-2.4); PHOSPHORUS 4.3 mg/dL (2.6-4.7); POTASSIUM 4.6 mmol/L (3.5-5.1); TOTAL BILIRUBIN 0.3 mg/dL (0.2-1.0); TOTAL PROTEIN 6.3 g/dL (6.4-8.2); URIC ACID 5.1 mg/dL (2.6-6.0)
[2022-01-02 01:07] LABS: HEMOGLOBIN A1C 6.9 % (4.8-5.6)
== END ==
LOC: LAB 12:51
PROVIDERS: ATTEND Specialist
DX: E10.39 Type 1 diabetes mellitus with other diabetic ophthalmic complication (principal); Z51.81 Encounter for therapeutic drug level monitoring; Z94.83 Pancreas transplant status; Z94.0 Kidney transplant status
CPT/HCPCS: 36415; 80053; 80197; 82150; 83036; 83690; 83735; 84100; 84550; 85025